=== PATIENT | female | born 1965 | race Caucasian/White ===

== ENCOUNTER 2020-02-10 12:22 | Emergency (ER) | payer MEDICAID ==
[~2020-02-10] VITALS: Ht 154.9 cm; Wt 83.0 kg
[2020-02-10 13:30] VITALS: BP 154/100
[2020-02-10] MEDS ORDERED: AMLO2.5T4 PO (13:30)
[2020-02-10] MEDS ORDERED: LevETIRAcetam 500 MG TABLET PO ONE (13:30)
[2020-02-10] MEDS ORDERED: LEVE250T55 PO (13:30)
[2020-02-10] MEDS ORDERED: PHEN50 PO (13:30)
[2020-02-10] MEDS ORDERED: PHENY100 PO (13:33)
== END 2020-02-10 14:15 | disposition home or self-care (01) ==
LOC: EDBD 12:26 → EMS 12:26
DX: G40.909 Epilepsy, unspecified, not intractable, without status epilepticus (principal); I10 Essential (primary) hypertension

== ENCOUNTER 2021-03-21 08:49 | Emergency (ER) | payer OTHER ==
[~2021-03-21] VITALS: Ht 157.5 cm; Wt 84.5 kg
[~2021-03-21 08:49] MED LIST: AMLO2.5T96 PO; LEVE500T8 PO; PHENY100 PO
[2021-03-21] MEDS ORDERED: TOPI25 PO (09:02)
[2021-03-21] MEDS ORDERED: ONDANSETRON HCL 4 MG/2 ML VIAL IVP ONE (09:15)
[2021-03-21] MEDS ORDERED: LevETIRAcetam 500 MG in DEXTROSE 5%-WATER 100 ML IV ONE (09:15)
[2021-03-21] MEDS ORDERED: SODIUM CHLORIDE 0.9% 500 ML IV ONE (09:15)
[2021-03-21] MEDS ORDERED: ACETAMINOPHEN 500 MG TABLET PO ONE (09:15)
[2021-03-21 09:49] LABS: BASOPHILS % (AUTO) 0.3 % (0.0-2.0); EOSINOPHILS % (AUTO) 3.4 % (1.0-6.0); HEMATOCRIT 34.9 % (36-46); HEMOGLOBIN 11.7 g/dL (12.0-16.0); LYMPHOCYTES # (AUTO) 1.8 K/uL (1.0-4.8); LYMPHOCYTES % (AUTO) 31.9 % (22.0-44.0); MEAN CORPUSCULAR HEMOGLOBIN 29.8 pg (26.0-34.0); MEAN CORPUSCULAR HGB CONC 33.6 G/dL (31.0-37.0); MEAN CORPUSCULAR VOLUME 89 fL (80-100); MONOCYTES # (AUTO) 0.3 K/uL (0.1-1.0); MONOCYTES % (AUTO) 5.2 % (2.0-9.0); NEUTROPHILS # (AUTO) 3.4 K/uL (1.8-7.7); NEUTROPHILS % (AUTO) 59.2 % (40.0-70.0); PLATELET COUNT (AUTO) 196 K/uL (150-450); RED BLOOD CELL COUNT(AUTO) 3.92 MIL/uL (4.00-5.20); RED CELL DISTRIBUTION WIDTH 13.3 % (11.5-14.5)
[2021-03-21 10:04] LABS: ANION GAP 8 mmol/L (8-16); CALCIUM, TOTAL 8.4 mg/dL (8.8-10.5); CARBON DIOXIDE 25 mmol/L (22-29); CHLORIDE 109 mmol/L (98-107); CREATININE 0.52 mg/dL (0.60-1.30); GLOMERULAR FILTR. RATE CALC > 60 mL/min (>60); GLUCOSE,RANDOM 95 mg/dL (70-110); POTASSIUM 3.9 mmol/L (3.5-5.1); SODIUM SERUM 142 mmol/L (136-145); UREA NITROGEN, BLOOD 11 mg/dL (7-18)
[2021-03-21 10:09] LABS: ALANINE AMINOTRANSFERASE 25 U/L (12-78); ALBUMIN 3.6 g/dL (3.4-5.0); ALKALINE PHOSPHATASE 121 U/L (46-116); ASPARTATE AMINOTRANSFERASE 15 U/L (15-37); BILIRUBIN,TOTAL 0.3 mg/dL (0.1-1.0); PHENYTOIN (DILANTIN) 2.7 mcg/mL (10.0-20.0); TOTAL PROTEIN, SERUM 7.1 g/dL (6.4-8.2)
[2021-03-21] MEDS ORDERED: PHENYTOIN SODIUM 750 MG in SODIUM CHLORIDE 0.9% 100 ML IV ONE (10:15)
[2021-03-21 11:40] VITALS: BP 122/71
== END 2021-03-21 12:07 | disposition home or self-care (01) ==
LOC: EMS 08:50
DX: R51.9 Headache, unspecified (principal); R11.0 Nausea; I10 Essential (primary) hypertension; F17.210 Nicotine dependence, cigarettes, uncomplicated
CPT/HCPCS: 36415; 80053; 80185; 85025; 96365; 96367; 96375; 99284; J0712; J1165; J2405; J7040; J7050; J7060; 99285

== ENCOUNTER 2025-03-14 11:20 | Inpatient (IN) | payer OTHER ==
[~2025-03-14] VITALS: Ht 162.6 cm; Wt 89.9 kg
[~2025-03-14 11:20] MED LIST changes: +PHEN100C74 PO; -PHENY100 PO; +TOPI-257 PO
[2025-03-14 13:41] LABS: PLATELET COUNT (AUTO) 249 K/uL (150-450); RED BLOOD CELL COUNT(AUTO) 3.96 MIL/uL (4.00-5.20); RED CELL DISTRIBUTION WIDTH 13.4 % (11.5-14.5); WHITE BLOOD COUNT (AUTO) 6.5 K/uL (4.5-11.0)
[2025-03-14 13:47] LABS: CALCIUM, TOTAL 8.3 mg/dL (8.8-10.5); CREATININE 0.63 mg/dL (0.60-1.30); GLOMERULAR FILTR. RATE CALC > 60 mL/min (>60); GLUCOSE,RANDOM 97 mg/dL (70-110); SODIUM SERUM 138 mmol/L (136-145); UREA NITROGEN, BLOOD 14 mg/dL (7-18)
[2025-03-14 13:51] LABS: ASPARTATE AMINOTRANSFERASE 16 U/L (15-37); CHOL/HDL RATIO 2.4 (3.9-5.7); LDL CHOL (CALC.) 72 mg/dL (0-130); TOTAL PROTEIN, SERUM 7.2 g/dL (6.4-8.2)
[2025-03-14 13:56] LABS: TROPONIN I-HIGH SENSITIVITY 50 ng/L (<51)
[2025-03-14 14:01] LABS: GLUCOMETER DEV NAME(LOC) ERT.7; GLUCOSE,POINT OF CARE 106 MG/DL (70-110)
[2025-03-14] MEDS ORDERED: BISACODYL 10 MG RECTAL RECTAL SUPPOSITORY PR PRN (15:15)
[2025-03-14] MEDS ORDERED: MAGNESIUM HYDROXIDE SUSPENSION 30 ML UDCUP PO PRN (15:15)
[2025-03-14] MEDS ORDERED: ONDANSETRON HCL 4 MG/2 ML VIAL IVP PRN (15:15)
[2025-03-14] MEDS ORDERED: MORPHINE SULFATE 2 MG/ML SYRINGE IVP PRN (15:15)
[2025-03-14] MEDS ORDERED: ZOLPIDEM TARTRATE 5 MG TABLET PO PRN (15:15)
[2025-03-14] MEDS ORDERED: HYDROCODONE/ACETAMINOPHEN 5-325 MG TABLET PO PRN (15:15)
[2025-03-14] MEDS ORDERED: ESCI20TA37 PO (15:27)
[2025-03-14] MEDS ORDERED: PHEN100C9 PO (15:27)
[2025-03-14] MEDS ORDERED: CARB15DR OU (15:27)
[2025-03-14] MEDS ORDERED: TOPI200T68 PO (15:27)
[2025-03-14] MEDS: HEPARIN SODIUM,PORCINE 5,000 UNITS/ML VIAL SQ SCH (15:27)
[2025-03-14] MEDS ORDERED: LEVE750T10 PO (15:27)
[2025-03-14] MEDS ORDERED: GADOTERATE MEGLUMINE 10 MMOL/20 ML VIAL IVP ONE (15:38)
[2025-03-14] MEDS: SODIUM CHLORIDE 0.9% 1,000 ML IV ONE (16:12)
[2025-03-14 16:30] LABS: APPEARANCE,URINE CLEAR (CLEAR); GLUCOSE, URINE (UA) NEGATIVE (NEGATIVE); LEUKOCYTE ESTERASE ,URINE TRACE (NEGATIVE); NITRATE,URINE NEGATIVE (NEGATIVE); OCCULT BLOOD,URINE NEGATIVE (NEGATIVE); PH,URINE DRUG SCREEN 6.5 (5.0-8.0)
[2025-03-14 16:37] LABS: ALCOHOL, URINE DRUG SCREEN NEGATIVE (NEGATIVE); AMPHET/METH SCREEN,URINE NEGATIVE (NEGATIVE); BARBITURATE SCREEN, URINE NEGATIVE (NEGATIVE); CANNABINOID SCREEN,URINE NEGATIVE (NEGATIVE); COCAINE SCREEN,URINE NEGATIVE (NEGATIVE); METHADONE SCREEN, URINE NEGATIVE (NEGATIVE)
[2025-03-14 16:43] LABS: SPECIFIC GRAVITIY, URINE 1.030 (1.003-1.030)
[2025-03-14 16:55] LABS: SQUAMOUS EPITHELIAL CELL,UR Moderate /LPF (None Seen); YEAST,URINE Rare /HPF (None Seen)
[2025-03-14 19:37] VITALS: BP 142/78; PULSE 64; RESP 19; TEMP 97.9; O2SAT 99
[2025-03-14 19:37] LABS: TROPONIN I-HIGH SENSITIVITY 58 ng/L (<51)
[2025-03-14] MEDS: DOCUSATE SODIUM 100 MG CAPSULE PO SCH (21:00)
[2025-03-14] MEDS: TOPIRAMATE 100 MG TABLET PO SCH (21:00)
[2025-03-14] MEDS ORDERED: PHENYTOIN SODIUM 100 MG ER CAPSULE PO SCH (21:00)
[2025-03-14] MEDS: ATORVASTATIN CALCIUM 20 MG TABLET PO SCH (21:00)
[2025-03-15 00:45] VITALS: BP 129/73; PULSE 78; RESP 20; TEMP 98.1; O2SAT 98
[2025-03-15 01:23] LABS: TROPONIN I-HIGH SENSITIVITY 68 ng/L (<51)
[2025-03-15 06:41] LABS: PLATELET COUNT (AUTO) 219 K/uL (150-450); RED BLOOD CELL COUNT(AUTO) 3.87 MIL/uL (4.00-5.20); RED CELL DISTRIBUTION WIDTH 13.2 % (11.5-14.5); WHITE BLOOD COUNT (AUTO) 5.4 K/uL (4.5-11.0)
[2025-03-15 07:10] LABS: CALCIUM, TOTAL 8.2 mg/dL (8.8-10.5); CREATININE 0.53 mg/dL (0.60-1.30); GLOMERULAR FILTR. RATE CALC > 60 mL/min (>60); GLUCOSE,RANDOM 95 mg/dL (70-110); SODIUM SERUM 143 mmol/L (136-145); UREA NITROGEN, BLOOD 8 mg/dL (7-18)
[2025-03-15 07:14] VITALS: BP 116/72; PULSE 75; RESP 18; TEMP 98.2; O2SAT 99
[2025-03-15] MEDS: ASPIRIN 81 MG CHEWABLE TABLET PO SCH (08:00)
[2025-03-15] MEDS: CLOPIDOGREL BISULFATE 75 MG TABLET PO SCH (09:00)
[2025-03-15] MEDS: PANTOPRAZOLE SODIUM 40 MG DR TABLET PO SCH (09:00)
[2025-03-15] MEDS ORDERED: LORazepam 2 MG/ML VIAL ONE (10:48)
[2025-03-15] MEDS: LORazepam 2 MG/ML VIAL IVP PRN ×2 (10:56→11:25)
[2025-03-15] MEDS: SODIUM CHLORIDE 0.9% 1,000 ML IV ONE (10:59)
[2025-03-15 11:16] VITALS: BP 190/102; PULSE 120; RESP 22; TEMP 98; O2SAT 98
[2025-03-15] MEDS: LevETIRAcetam 1,000 MG in DEXTROSE 5%-WATER 100 ML IV SCH (11:29)
[2025-03-15 15:20] VITALS: BP 145/99; PULSE 99; RESP 20; TEMP 97.9; O2SAT 96
[2025-03-15 20:34] VITALS: BP 100/61; PULSE 101; RESP 20; TEMP 99; O2SAT 95
[2025-03-15] MEDS: ACETAMINOPHEN 325 MG TABLET PO PRN (20:38)
[2025-03-16] VITALS: BP 106/67; PULSE 86; RESP 19; TEMP 98.6; O2SAT 95
[2025-03-16 04:50] VITALS: BP 135/89; PULSE 78; RESP 17; TEMP 98.1; O2SAT 99
[2025-03-16 06:47] LABS: PLATELET COUNT (AUTO) 231 K/uL (150-450); RED BLOOD CELL COUNT(AUTO) 3.94 MIL/uL (4.00-5.20); RED CELL DISTRIBUTION WIDTH 13.1 % (11.5-14.5); WHITE BLOOD COUNT (AUTO) 6.0 K/uL (4.5-11.0)
[2025-03-16 06:56] LABS: CALCIUM, TOTAL 8.8 mg/dL (8.8-10.5); CREATININE 0.63 mg/dL (0.60-1.30); GLOMERULAR FILTR. RATE CALC > 60 mL/min (>60); GLUCOSE,RANDOM 103 mg/dL (70-110); SODIUM SERUM 137 mmol/L (136-145); UREA NITROGEN, BLOOD 13 mg/dL (7-18)
[2025-03-16 07:55] VITALS: BP 106/56; PULSE 80; RESP 19; TEMP 98; O2SAT 98
[2025-03-16 11:52] VITALS: BP 130/75; PULSE 80; RESP 19; TEMP 98.4; O2SAT 97
[2025-03-16 14:58] VITALS: BP 106/61; PULSE 76; RESP 18; TEMP 98.4; O2SAT 96
[2025-03-16 18:23] LABS: TROPONIN I-HIGH SENSITIVITY 1447 ng/L (<51)
[2025-03-16] MEDS ORDERED: HEPARIN SODIUM,PORCINE 5,000 UNITS/ML VIAL IVP PRN ×2 (18:45)
[2025-03-16 19:31] VITALS: BP 111/62; PULSE 82; RESP 18; TEMP 98.1; O2SAT 98
[2025-03-16] MEDS: HEPARIN SODIUM,PORCINE 5,000 UNITS/ML VIAL IVP ONE (19:53)
[2025-03-16] MEDS: ASPIRIN 81 MG CHEWABLE TABLET PO ONE (19:56)
[2025-03-16 20:43] LABS: PLATELET COUNT (AUTO) 256 K/uL (150-450); RED BLOOD CELL COUNT(AUTO) 4.07 MIL/uL (4.00-5.20); RED CELL DISTRIBUTION WIDTH 13.3 % (11.5-14.5); WHITE BLOOD COUNT (AUTO) 6.3 K/uL (4.5-11.0)
[2025-03-17] MEDS: HEPARIN SODIUM 25000 UNITS/D5W 250 ML IV PRN (00:12)
[2025-03-17 00:13] VITALS: BP 113/59; PULSE 70; RESP 18; TEMP 98.1; O2SAT 96
[2025-03-17 03:38] VITALS: BP 100/60; PULSE 76; RESP 19; TEMP 98.1; O2SAT 98
[2025-03-17 04:51] LABS: PLATELET COUNT (AUTO) 229 K/uL (150-450); RED BLOOD CELL COUNT(AUTO) 3.99 MIL/uL (4.00-5.20); RED CELL DISTRIBUTION WIDTH 13.2 % (11.5-14.5); WHITE BLOOD COUNT (AUTO) 6.9 K/uL (4.5-11.0)
[2025-03-17 05:11] LABS: CALCIUM, TOTAL 8.7 mg/dL (8.8-10.5); CREATININE 0.64 mg/dL (0.60-1.30); GLOMERULAR FILTR. RATE CALC > 60 mL/min (>60); GLUCOSE,RANDOM 101 mg/dL (70-110); SODIUM SERUM 143 mmol/L (136-145); UREA NITROGEN, BLOOD 16 mg/dL (7-18)
[2025-03-17] MEDS: GABAPENTIN 100 MG CAPSULE PO ONE (07:28)
[2025-03-17 07:37] VITALS: BP 123/78; PULSE 76; RESP 18; TEMP 98.1; O2SAT 95
[2025-03-17 08:24] LABS: TROPONIN I-HIGH SENSITIVITY 965 ng/L (<51)
[2025-03-17 11:16] VITALS: BP 91/60; PULSE 80; RESP 18; TEMP 97.7; O2SAT 97
[2025-03-17] MEDS ORDERED: NITROGLYCERIN 2% (1 GM=INCH) OINTMENT PACKET TP SCH (13:00)
[2025-03-17 15:50] VITALS: BP 143/87; PULSE 87; RESP 18; TEMP 97.9; O2SAT 97
[2025-03-17 20:20] VITALS: BP 121/64; PULSE 79; RESP 18; TEMP 98.4; O2SAT 97
[2025-03-17] MEDS: GABAPENTIN 300 MG CAPSULE PO SCH (20:55)
[2025-03-18] VITALS (7 sets, daily range): BP systolic 107–144; BP diastolic 56–93; PULSE 63–80; RESP 18–19; TEMP 97.7–98.4; O2SAT 96–99
[2025-03-18 06:45] LABS: PLATELET COUNT (AUTO) 219 K/uL (150-450); RED BLOOD CELL COUNT(AUTO) 3.80 MIL/uL (4.00-5.20); RED CELL DISTRIBUTION WIDTH 13.2 % (11.5-14.5); WHITE BLOOD COUNT (AUTO) 5.8 K/uL (4.5-11.0)
[2025-03-18 07:02] LABS: CALCIUM, TOTAL 8.6 mg/dL (8.8-10.5); CREATININE 0.83 mg/dL (0.60-1.30); GLOMERULAR FILTR. RATE CALC > 60 mL/min (>60); GLUCOSE,RANDOM 98 mg/dL (70-110); SODIUM SERUM 142 mmol/L (136-145); UREA NITROGEN, BLOOD 21 mg/dL (7-18)
[2025-03-18 07:15] LABS: TROPONIN I-HIGH SENSITIVITY 416 ng/L (<51)
[2025-03-18] MEDS: HEPARIN SODIUM,PORCINE 5,000 UNITS/ML VIAL SQ SCH (08:48)
[2025-03-19 04:09] VITALS: BP 95/64; PULSE 72; RESP 18; TEMP 98.4; O2SAT 100
[2025-03-19 07:56] LABS: CALCIUM, TOTAL 8.7 mg/dL (8.8-10.5); CREATININE 0.69 mg/dL (0.60-1.30); GLOMERULAR FILTR. RATE CALC > 60 mL/min (>60); GLUCOSE,RANDOM 99 mg/dL (70-110); SODIUM SERUM 139 mmol/L (136-145); UREA NITROGEN, BLOOD 17 mg/dL (7-18)
[2025-03-19 08:26] VITALS: BP 102/58; PULSE 69; RESP 17; TEMP 98.4; O2SAT 98
[2025-03-19 09:00] LABS: TROPONIN I-HIGH SENSITIVITY 206 ng/L (<51)
[2025-03-19 12:08] VITALS: BP 101/67; PULSE 59; RESP 16; TEMP 97.8; O2SAT 97
[2025-03-19 16:18] VITALS: BP 94/57; PULSE 60; RESP 16; TEMP 98.6; O2SAT 94
[2025-03-19 21:02] VITALS: BP 114/62; PULSE 69; RESP 20; TEMP 98.4; O2SAT 96
[2025-03-20] VITALS (15 sets, daily range): BP systolic 94–158; BP diastolic 61–86; PULSE 57–77; RESP 18–19; TEMP 97.9–98.4; O2SAT 98–99
[2025-03-20] MEDS ORDERED: SODIUM BICARBONATE 50 MEQ/50 ML VIAL ONE (07:08)
[2025-03-20] MEDS ORDERED: IOHEXOL 300 MG/ML 100 ML VIAL ONE ×2 (07:08→07:09)
[2025-03-20] MEDS ORDERED: HEPARIN SODIUM 1000 UNITS/NS 1,000 ML ONE (07:08)
[2025-03-20] MEDS ORDERED: LIDOCAINE/PF 1% 30 ML VIAL ONE (07:08)
[2025-03-20] MEDS ORDERED: MIDAZOLAM HCL 2 MG/2 ML VIAL ONE (07:47)
[2025-03-20] MEDS ORDERED: FentaNYL CITRATE PF 100 MCG/2 ML VIAL ONE (07:47)
[2025-03-20] MEDS ORDERED: VERAPAMIL HCL 2.5 MG/ML 2 ML VIAL ONE (07:49)
[2025-03-20] MEDS ORDERED: NITROGLYCERIN 50 MG/D5% WATER 250 ML ONE (07:50)
[2025-03-20] MEDS: VERAPAMIL HCL 2.5 MG/ML 2 ML VIAL IARTER ONE (08:14)
[2025-03-20] MEDS: IOHEXOL 300 MG/ML 100 ML VIAL ICOR ONE (08:14)
[2025-03-20] MEDS: HEPARIN SODIUM,PORCINE 1,000 UNITS/ML 10 ML VIAL IARTER ONE (08:14)
[2025-03-20] MEDS: LIDOCAINE 1% 30 ML/SOD BICARB 8.4% 4 ML SQ ONE (08:14)
[2025-03-20] MEDS: NITROGLYCERIN/D5W 50 MG/250 ML IV BOTTLE IARTER ONE (08:15)
[2025-03-20] MEDS: MIDAZOLAM HCL 2 MG/2 ML VIAL IVP ONE (08:15)
[2025-03-20] MEDS: HEPARIN SODIUM 1000 UNITS/NS 1,000 ML IARTER ONE (08:16)
[2025-03-20] MEDS: FentaNYL CITRATE PF 100 MCG/2 ML VIAL IVP ONE (08:16)
[2025-03-20] MEDS ORDERED: GABA-1181 PO (13:12)
[2025-03-20] MEDS ORDERED: CARV3 PO (13:12)
[2025-03-20] MEDS ORDERED: ASPI-1450 PO (13:12)
[2025-03-20] MEDS ORDERED: ATOR20TA65 PO (13:12)
== END 2025-03-20 19:30 | disposition home or self-care (01) | DRG 47 ==
LOC: EMS 11:37 → EDH 14:55 → 5N 19:11
PROVIDERS: ADMIT Internal Medicine; ATTEND Internal Medicine
PROC: 05HA33Z Insertion of Infusion Device into Left Brachial Vein, Percutaneous Approach (ICD-10-PCS; 2025-03-18)
PROC: B54NZZA Ultrasonography of Left Upper Extremity Veins, Guidance (ICD-10-PCS; 2025-03-18)
PROC: 4A023N7 Measurement of Cardiac Sampling and Pressure, Left Heart, Percutaneous Approach (ICD-10-PCS; principal; 2025-03-20)
PROC: B2111ZZ Fluoroscopy of Multiple Coronary Arteries using Low Osmolar Contrast (ICD-10-PCS; 2025-03-20)
DX: G45.9 Transient cerebral ischemic attack, unspecified (principal); I21.A1 Myocardial infarction type 2; G40.201 Localization-related (focal) (partial) symptomatic epilepsy and epileptic syndromes with complex partial seizures, not intractable, with status epilepticus; G62.9 Polyneuropathy, unspecified; I10 Essential (primary) hypertension; T42.0X5A Adverse effect of hydantoin derivatives, initial encounter; Y92.89 Other specified places as the place of occurrence of the external cause
CPT/HCPCS: 36245; 36569; 70496; 70498; 70551; 71045; 72141; 76937; 80048; 80053; 80061; 80185; 80307; 81001; 82550; 82948; 82962; 83036; 83735; 84443; 84484; 85025; 85610; 85730; 86850; 86900; 86901; 93005; 93306; 93880; 96360; 97162; 97165; 99291; J0712; J1644; J2060; J2250; J3010; J3490; J7030; J7060; Q9967; 36415-L1; 36415-TC; 70450; 70450-TC; Z7610